=== PATIENT | female | born 1985 | race American Indian/Alaskan Native ===

== ENCOUNTER 2017-12-29 09:18 | Emergency (ER) | payer MEDICARE ==
[2017-12-29 11:38] LABS: Bacteria,Urine 1+ /HPF (Negative); Bilirubin,Urine NEG (Negative); Blood,Urine NEG (Negative); Color,Urine Yellow (Yellow); Mucus,Urine FEW /HPF; Protein,Urine <15 mg/dL mg/dL (Negative); Urobilinogen,Urine < 2.0 mg/dL (<2.0)
[2017-12-29 11:40] LABS: Hemoglobin 10.9 gm/dl (10.1-14.3); Mean Corpuscular HGB Conc 33 % (30-34); Mean Corpuscular Hemoglobin 31 pg (28-32); Mean Corpuscular Volume 92 fl (79-97); Platelet Count 321 K/mm3 (140-440); Red Blood Count 3.58 M/mm3 (3.65-5.03); Red Cell Distribution Width 14.1 % (13.2-15.2)
[2017-12-29] MEDS ORDERED: TYLENOL PO ONE (11:45)
[2017-12-29] MEDS ORDERED: NACL 0.9% 1000 ML 1,000 ML IV ONE (12:01)
[2017-12-29 12:03] LABS: BUN/Creatinine Ratio 14; Blood Urea Nitrogen 7 mg/dL (7-17); Hemolysis Index 3
[2017-12-29 12:28] LABS: Alanine Aminotransferase 68 units/L (7-56); Albumin 3.6 g/dL (3.9-5); Lipase 11 units/L (13-60)
[2017-12-29 12:31] LABS: Bilirubin,Direct < 0.2 mg/dL (0-0.2)
--- NOTE | 2017-12-29 14:18 | XRay Report ---
AP CHEST: HISTORY: chest pain AP view of the chest demonstrates a normal mediastinal and cardiac contour with clear lungs and normal bony and soft tissue structures. IMPRESSION: Unremarkable AP chest.
--- NOTE | 2017-12-29 14:19 | XRay Report ---
RIGHT TIBIA/FIBULA: History: Pain AP and lateral views of the right tibia/fibula demonstrate normal mineralization and contours for this patient's age. No destructive changes are noted and the adjacent soft tissues are normal. IMPRESSION: Unremarkable right tibia/fibula.
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
[2017-12-29 15:52] VITALS: BP 111/64
== END 2017-12-29 15:51 | disposition home or self-care (01) ==
LOC: ED 09:18
DX: O9A.212 Injury, poisoning and certain other consequences of external causes complicating pregnancy, second trimester (principal); M79.661 Pain in right lower leg; M54.9 Dorsalgia, unspecified; Z3A.16 16 weeks gestation of pregnancy; V89.2XXA Person injured in unspecified motor-vehicle accident, traffic, initial encounter; Y93.89 Activity, other specified; Y92.89 Other specified places as the place of occurrence of the external cause; Y99.8 Other external cause status
CPT/HCPCS: 36415; 71045; 73590; 76805; 80048; 80074; 81001; 83690; 84702; 85027; 86900; 86901; 93005; 93010; 96360; 99285; J7030